=== PATIENT | male | born 1930 | race African-American/Black ===

== ENCOUNTER 2017-07-31 09:04 | Inpatient (IN) | payer MEDICARE, OTHER ==
[2017-07-31] VITALS (44 sets, daily range): BP systolic 52–148; BP diastolic 14–113
[~2017-07-31] VITALS: Ht 177.8 cm; Wt 82.1 kg
[2017-07-31] MEDS ORDERED: NS 250 ML IVPB ONE (09:30)
[2017-07-31 10:42] LABS: ANION GAP 32 mmol/L (5-15); BLOOD UREA NITROGEN 102 mg/dL (7-18); CALCIUM 8.9 MG/DL (8.5-10.1); CARBON DIOXIDE 12 MMOL/L (21-32); CHLORIDE 97 MMOL/L (98-107); CREATININE 8.8 MG/DL (0.55-1.30); POTASSIUM 4.2 MMOL/L (3.5-5.1); SODIUM 141 MMOL/L (136-145)
[2017-07-31] MEDS ORDERED: Sodium Chloride 500ML 500 ML IV ONE (10:45)
[2017-07-31 10:47] LABS: APPEARANCE,URINE VERY CLOUDY; BILIRUBIN, URINE NEGATIVE (NEGATIVE); GLUCOSE, URINE (UA) NEGATIVE (NEGATIVE); KETONES,URINE 1+ (NEGATIVE); LEUKOCYTE ESTERASE ,URINE 3+ (NEGATIVE); NITRITE,URINE POSITIVE (NEGATIVE); PH,URINE 6 (4.5-8.0); PROTEIN,URINE 3+ (NEGATIVE); UROBILINOGEN,URINE NORMAL MG/DL (0.0-1.0)
[2017-07-31 10:50] LABS: COLOR,URINE YELLOW; HEMATOCRIT 14.7 % (42.0-52.0); MEAN CORPUSCULAR VOLUME 109 FL (80-99); PLATELET COUNT 228 K/UL (150-450); RED BLOOD COUNT 1.35 M/UL (4.70-6.10); RED CELL DISTRIBUTION WIDTH 20.8 % (11.6-14.8); WHITE BLOOD COUNT 18.9 K/UL (4.8-10.8)
[2017-07-31 10:55] LABS: ALANINE AMINOTRANSFERASE 38 U/L (12-78); ALBUMIN 2.5 G/DL (3.4-5.0); ALBUMIN/GLOBULIN RATIO 0.8 (1.0-2.7); ALKALINE PHOSPHATASE 91 U/L (46-116); ASPARTATE AMINO TRANSFERASE 35 U/L (15-37); BILIRUBIN,TOTAL 0.3 MG/DL (0.2-1.0); CKMB 0.7 NG/ML (0.0-3.6); CREATINE KINASE 35 U/L (26-308)
[2017-07-31 10:59] LABS: HEMOGLOBIN 4.5 G/DL (14.2-18.0)
[2017-07-31] MEDS ORDERED: cefTRIAXone 1 GM in NS 55 ML IVPB ONE (11:15)
[2017-07-31 11:30] LABS: HEMATOCRIT 14.1 % (42.0-52.0); MEAN CORPUSCULAR VOLUME 109 FL (80-99); PLATELET COUNT 219 K/UL (150-450); RED BLOOD COUNT 1.29 M/UL (4.70-6.10); WHITE BLOOD COUNT 19.3 K/UL (4.8-10.8)
[2017-07-31 11:32] LABS: HEMOGLOBIN 4.2 G/DL (14.2-18.0)
[2017-07-31 11:41] LABS: INR 1.2 (0.9-1.1)
--- NOTE | 2017-07-31 11:48 | Diagnostic Imaging Report ---
Indication: Altered mental status Technique: XRAY Chest 1v Comparison: None Findings: Dialysis catheter in place. Vascular stents noted in the region of the left axilla. Heart is borderline enlarged. There is no definite focal airspace consolidation, no pleural effusion or pneumothorax. Surgical clips project over the epigastric region. No acute osseous abnormality seen. Impression: No radiographic evidence of acute cardiopulmonary disease. Borderline cardiomegaly. Dialysis catheter in place.
[2017-07-31] MEDS ORDERED: LORazepam Inj 2mg/ml 1ml IV ONE (15:00)
--- NOTE | 2017-07-31 15:33 | Emergency Room Report ---
History of Present Illness General Chief Complaint: Altered Level of Consciousness Source: Patient, Medical Record Present Illness HPI 87-year-old male presents ED for evaluation. Patient brought by EMS from detention. Patient found to be more confused than usual today. Hypotensive in the field. Patient has history of end-stage renal disease and gets dialysis Monday. Patient did not go to dialysis today. No fevers or chills. No chest pain shortness of breath. No other aggravating or leaving factors. 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 Review of Systems All Other Systems: limited Physical Exam Vital Signs Date Time Temp Pulse Resp B/P (MAP) Pulse Ox O2 Delivery O2 Flow Rate FiO2 07/31/17 08:58 98.8 68 22 99/32 100 Non-Rebreather 15.0 Sp02 EP Interpretation: reviewed, normal General Appearance: other - confused Head: normocephalic Eyes: bilateral eye normal inspection, bilateral eye PERRL ENT: hearing grossly normal, normal pharynx, no angioedema, normal voice Neck: full range of motion, supple/symm/no masses Respiratory: chest non-tender, lungs clear, normal breath sounds, speaking full sentences Cardiovascular #1: regular rate, rhythm, no edema Gastrointestinal: normal bowel sounds, non tender, soft, non-distended, no guarding, no rebound Rectal: deferred Genitourinary: no CVA tenderness Musculoskeletal: normal inspection Neurologic: other - confused Psychiatric: other - confused Skin: normal inspection Lymphatic: normal inspection Procedures Critical Care Time Critical Care Time i. I feel this is a highly complex case requiring extensive working including EKG/Rhythm strip, Xray/CT/US, Blood/urine lab work, repeat exams while in ED, and administration of strong opiates/narcotics for pain control, admission to hospital or close patient follow up. Total time: 30 min bedside evaluation and treatment excludes procedures (EKG). Reason for critical care: Hypotensive, anemia, septic shock Possible complications: hypotension, hypertension, CA, shock, arrhythmias, metabolic acidosis, end organ damage, respiratory failure. Interventions: Labs, IV fluids, EKG, chest x-ray. Blood transfusion. Pressors. Central line. abx Course: 87-year-old male presents hypotensive from detention. Blood pressure minimally improved with IV fluids. Hb 4.5. Lactic acid greater than 15. UA grossly positive. Right femoral central line placed. Blood transfusion. Discussed with family. Patient initially DO NOT RESUSCITATE/ comfort care but family wants to treat patient. new POLST signed Consultations: nursing staff, EMS, family Performed by: Dr Ko Tolerated well condition = critical j. because of unstable vital signs this patient had a condition that could potentially threaten life or limb. I feel this is a critical patient who required my full attention while patient was considered critical. Total Critical Care Time excluding procedures was greater than 35 minutes Central Line Central Line : Consent: Verbal Central Line Lumen: triple Maximal Sterile Barrier Tech: yes cap, yes mask, yes sterile gown, yes sterile gloves, yes large sterile sheet, yes hand hygiene, yes chlorhexidine prep Central Line Postion: femoral (R) Anesthesia: Lidocaine Complications: none Central Line Post Position: sutured, good blood return Attempts: One Patient Tolerated: Well Complications: None Medical Decision Making Diagnostic Impression: Primary Impression: Septic shock Additional Impressions: UTI (urinary tract infection) Qualified Codes: N39.0 - Urinary tract infection, site not specified ESRD (end stage renal disease) on dialysis Anemia Qualified Codes: D64.9 - Anemia, unspecified Hypotension Qualified Codes: I95.9 - Hypotension, unspecified Altered level of consciousness ER Course Hospital Course 87-year-old male presenting to ED with generalized weakness, hypotension. Differential diagnoses include: Pneumonia, UTI, sepsis, dehydration, CA/ unstable angina Clinical course Patient placed on stretcher. On phototypesetting equipment monitor with stable vitals are ED course. After initial history and physical, I ordered labs, IV fluids, EKG, chest x-ray, blood cultures, UA. Patient is difficult IV access. I placed a peripheral EJ line Labs - BUN/Cr elevated, marked leukocytosis, troponins negative, lactic acid > 15, UA grossly positive for UTI EKG - NSR, no acute ischemic changes interpreted bye me CXR - cardiomegaly, dialysis catheter in place Abx given. despite IV fluid boluses patient remains hypotensive. Patient advanced directive says patient is DO NOT RESUSCITATE, comfort care measures. spoke to over the phone and the patient's sons who states they want more aggressive measures for the patient Family agrees to central line. Blood transfusion. abx given. pressors ordered but currently withheld new POLST signed by gisella Case discussed with Dr Stallings and they agreed to admit patient to their service for further care and support I feel this is a highly complex case requiring extensive working including EKG/ Rhythm strip, Xray/CT/US, Blood/urine lab work, repeat exams while in ED, and administration of strong opiates/narcotics for pain control, admission to hospital or close patient follow up. Diagnosis - septic shock, UTI, ESRD on dialysis, anemia, hypotension, ALOC Patient admitted to ICU in critical condition Labs Test 07/31/17 10:06 07/31/17 10:10 07/31/17 11:15 Troponin I 0.036 ng/mL (0.000-0.056) White Blood Count 18.9 K/UL (4.8-10.8) 19.3 K/UL (4.8-10.8) Red Blood Count 1.35 M/UL (4.70-6.10) 1.29 M/UL (4.70-6.10) Hemoglobin 4.5 G/DL (14.2-18.0) 4.2 G/DL (14.2-18.0) Hematocrit 14.7 % (42.0-52.0) 14.1 % (42.0-52.0) Mean Corpuscular Volume 109 FL (80-99) 109 FL (80-99) Mean Corpuscular Hemoglobin 33.7 PG (27.0-31.0) 32.4 PG (27.0-31.0) Mean Corpuscular Hemoglobin Concent 30.8 G/DL (32.0-36.0) 29.6 G/DL (32.0-36.0) Red Cell Distribution Width 20.8 % (11.6-14.8) 22.0 % (11.6-14.8) Platelet Count 228 K/UL (150-450) 219 K/UL (150-450) Mean Platelet Volume 6.3 FL (6.5-10.1) 6.0 FL (6.5-10.1) Neutrophils (%) (Auto) % (45.0-75.0) % (45.0-75.0) Lymphocytes (%) (Auto) % (20.0-45.0) % (20.0-45.0) Monocytes (%) (Auto) % (1.0-10.0) % (1.0-10.0) Eosinophils (%) (Auto) % (0.0-3.0) % (0.0-3.0) Basophils (%) (Auto) % (0.0-2.0) % (0.0-2.0) Differential Total Cells Counted 100 100 Neutrophils % (Manual) 92 % (45-75) 84 % (45-75) Lymphocytes % (Manual) 3 % (20-45) 6 % (20-45) Monocytes % (Manual) 5 % (1-10) 10 % (1-10) Eosinophils % (Manual) 0 % (0-3) 0 % (0-3) Basophils % (Manual) 0 % (0-2) 0 % (0-2) Band Neutrophils 0 % (0-8) 0 % (0-8) Platelet Estimate Adequate Adequate Platelet Morphology Normal Normal Hypochromasia 4+ 4+ Anisocytosis 2+ 3+ Macrocytosis 1+ 1+ Urine Color Yellow Urine Appearance Very cloudy Urine pH 6 (4.5-8.0) Urine Specific Mccaskill 1.020 (1.005-1.035) Urine Protein 3+ (NEGATIVE) Urine Glucose (UA) Negative (NEGATIVE) Urine Ketones 1+ (NEGATIVE) Urine Occult Blood 4+ (NEGATIVE) Urine Nitrite Positive (NEGATIVE) Urine Bilirubin Negative (NEGATIVE) Urine Urobilinogen Normal MG/DL (0.0-1.0) Urine Leukocyte Esterase 3+ (NEGATIVE) Urine RBC Tntc /HPF (0 - 0) Urine WBC 10-15 /HPF (0 - 0) Urine Squamous Epithelial Cells Occasional /LPF Urine Bacteria Few /HPF (NONE) Sodium Level 141 MMOL/L (136-145) Potassium Level 4.2 MMOL/L (3.5-5.1) Chloride Level 97 MMOL/L (98-107) Carbon Dioxide Level 12 MMOL/L (21-32) Anion Gap 32 mmol/L (5-15) Blood Urea Nitrogen 102 mg/dL (7-18) Creatinine 8.8 MG/DL (0.55-1.30) Estimat Glomerular Filtration Rate mL/min (>60) Glucose Level 274 MG/DL (74-106) Lactic Acid Level 15.90 mmol/L (0.66-2.22) Calcium Level 8.9 MG/DL (8.5-10.1) Total Bilirubin 0.3 MG/DL (0.2-1.0) Aspartate Amino Transf (AST/SGOT) 35 U/L (15-37) Alanine Aminotransferase (ALT/SGPT) 38 U/L (12-78) Alkaline Phosphatase 91 U/L (46-116) Total Creatine Kinase 35 U/L (26-308) Creatine Kinase MB 0.7 NG/ML (0.0-3.6) Creatine Kinase MB Relative Index 2.0 Total Protein 5.5 G/DL (6.4-8.2) Albumin 2.5 G/DL (3.4-5.0) Globulin 3.0 g/dL Albumin/Globulin Ratio 0.8 (1.0-2.7) Polychromasia 1+ Prothrombin Time 12.5 SEC (9.30-11.50) Prothromb Time International Ratio 1.2 (0.9-1.1) Activated Partial Thromboplast Time 21 SEC (23-33) EKG Diagnostic Results Rate: normal Rhythm: NSR ST Segments: no acute changes ASA given to the pt in ED: No Rhythm Strip Diag. Results EP Interpretation: yes Rhythm: NSR, no PVC's, no ectopy Chest X-Ray Diagnostic Results Chest X-Ray Diagnostic Results : Chest X-Ray Ordered: Yes # of Views/Limited/Complete: 1 View Indication: Other - ams EP Interpretation: Yes Interpretation: no pneumothorax, other - cardiomegaly. dialysis catheter Impression: Other - cardiomegaly Electronically Signed by: Electronically signed by Clinton Ko MD Last Vital Signs Date Time Temp Pulse Resp B/P (MAP) Pulse Ox O2 Delivery O2 Flow Rate FiO2 07/31/17 11:00 96.0 79 21 74/39 100 Room Air 07/31/17 09:25 15.0 Status: improved Disposition: ADMITTED INPATIENT Condition: Critical Referrals: EBONY STALLINGS (PCP) CLINTON KO M.D. Jul 31, 2017 15:33
[2017-07-31] MEDS ORDERED: LORazepam Inj 2mg/ml 1ml IV PRN (17:45)
[2017-07-31] MEDS ORDERED: Piperacillin/Tazobactam 2.25 GM in D5W 55 ML IVPB SCH (18:30)
[2017-07-31] MEDS ORDERED: Piperacillin/Tazobactam 2.25 GM in NS 55 ML IVPB SCH (18:30)
--- NOTE | 2017-07-31 18:30 | History and Physical Report ---
DATE OF ADMISSION: 07/31/2017 CHIEF COMPLAINT: Shock, anemia. HISTORY OF PRESENT ILLNESS: The patient is an 87-year-old male. He has a prior history of stroke, hypertension, end-stage renal disease, diabetes, and ischemic cardiomyopathy. He was transferred from a halfway facility after he was found confused and poorly responsive. On evaluation in the emergency room, the patient was hypotensive. He had hemoglobin of 4 and a white count of 20,000. He had evidence of urinary tract infection. His x-ray is clear. Lactic acid level is 20. He is currently being transfused and is now being admitted to intensive care unit. The patient is currently very confused and he is not able to provide any history. PAST MEDICAL HISTORY: As above. PAST SURGICAL HISTORY: None. MEDICATIONS: Current medications reconciled and reviewed. ALLERGIES: None. SOCIAL HISTORY: There is no known history of tobacco, ethanol, or drugs. FAMILY HISTORY: None. REVIEW OF SYSTEMS: From the patient is unobtainable. PHYSICAL EXAMINATION: VITAL SIGNS: Temperature 98 degrees, blood pressure 70/50, pulse 64, and respirations 23. GENERAL: The patient is a well-developed male, in moderate amount of distress. He is anxious and confused. NECK: Supple. HEART: Regular rate and rhythm. LUNGS: Clear and . ABDOMEN: Soft, nontender and nondistended. EXTREMITIES: Without clubbing or cyanosis. The patient has a dialysis catheter in the chest wall. LABORATORY AND DIAGNOSTIC DATA: Sodium 141, potassium 4.2, chloride 97, bicarbonate 12, BUN was 102 and creatinine of 8.8. White count was 20,000, hemoglobin 4.5, hematocrit 14.7 and platelet count of 228. UA showed 10 to 15 WBCs. INR is 1.2. Lactic acid was 15.9. Chest x-ray is clear. ASSESSMENT: This is an unfortunate male with multiple medical problems, admitted with shock, sepsis and anemia. 1. Shock. 2. Sepsis. 3. Anemia, rule out gastrointestinal bleed. 4. Diabetes. 5. History of stroke. 6. History of ischemic cardiomyopathy. PLAN: IV fluids, transfuse, IV proton pump inhibitor for presumed gastrointestinal bleed. Epogen will also be added. The patient will be pancultured. Broad-spectrum IV antibiotic therapy. Renal, Cardiology, and Infectious Diseases consultations will be obtained. The patient is currently critical and guarded. Plan of care was discussed at the bedside with the patient's granddaughter. She has reconfirmed that the patient is a Full Code. Mamadou Paul M.D. DR: YRIS JOB#: [id number] CC:
[2017-07-31] MEDS ORDERED: Vancomycin 1.5 GM/D5W 250ML IVPB ONE (19:30)
--- NOTE | 2017-07-31 19:55 | Consultation ---
Consult Note Assessment/Plan #[id number] AVERY FAIRCHILD Jul 31, 2017 19:55
[2017-07-31] MEDS: Pantoprazole Inj IVP SCH (20:59)
[2017-07-31] MEDS ORDERED: Epogen (for ESRD on dialysis) SUBQ SCH (21:00)
[2017-07-31] MEDS: NovoLOG Insulin Flexpen SUBQ SCH (21:12)
[2017-07-31] MEDS: Piperacillin/Tazobactam 2.25 GM in NS 55 ML IVPB SCH (22:00)
[2017-07-31] MEDS ORDERED: Lidocaine 1% Plain 30 ml INJ ONE (22:29)
[2017-07-31] MEDS ORDERED: Sodium Bicarbonate 50ml Carp ONE (23:21)
[2017-07-31 23:36] LABS: HEMATOCRIT 19.9 % (42.0-52.0); MEAN CORPUSCULAR VOLUME 93 FL (80-99); PLATELET COUNT 197 K/UL (150-450); RED BLOOD COUNT 2.13 M/UL (4.70-6.10); RED CELL DISTRIBUTION WIDTH 20.7 % (11.6-14.8)
[2017-07-31 23:42] LABS: WHITE BLOOD COUNT 28.1 K/UL (4.8-10.8)
[2017-07-31 23:43] LABS: HEMOGLOBIN 6.6 G/DL (14.2-18.0)
[2017-07-31 23:46] LABS: % IRON SATURATION 138 % (15-50); IRON 153 ug/dL (50-175); TOTAL IRON BINDING CAPACITY 111 ug/dL (250-450)
[2017-08-01] VITALS (34 sets, daily range): BP systolic 61–167; BP diastolic 12–107
[2017-08-01] MEDS: Sodium Bicarbonate 50 ML in NS 1000ml 1,000 ML IV SCH ×2 (00:21→09:17)
--- NOTE | 2017-08-01 00:21 | Emergency Room Report ---
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 Physical Exam Vital Signs Date Time Temp Pulse Resp B/P (MAP) Pulse Ox O2 Delivery O2 Flow Rate FiO2 07/31/17 08:58 98.8 68 22 99/32 100 Non-Rebreather 15.0 07/31/17 20:00 28 Procedures Central Line Central Line : Consent: Emergent Central Line Lumen: triple Maximal Sterile Barrier Tech: yes cap, yes mask, yes sterile gown, yes sterile gloves, yes large sterile sheet, yes hand hygiene, yes chlorhexidine prep Central Line Postion: internal jugular (L) Anesthesia: Lidocaine - 5 ml cc's of anesthesia: 5 Complications: none Central Line Post Position: sutured, good blood return, position confirmed w / CXR Attempts: Other - two attempt left femoral line without success Patient Tolerated: Well Complications: None Medical Decision Making Diagnostic Impression: Primary Impression: Septic shock Additional Impressions: Anemia Altered level of consciousness UTI (urinary tract infection) ESRD (end stage renal disease) on dialysis Hypotension Last Vital Signs Date Time Temp Pulse Resp B/P (MAP) Pulse Ox O2 Delivery O2 Flow Rate FiO2 07/31/17 23:15 72 32 85/24 100 Nasal Cannula 2.0 07/31/17 20:00 28 07/31/17 20:00 96.0 Disposition: ADMITTED INPATIENT Condition: Critical Referrals: EBONY STALLINGS (PCP) Semaj Sagastume Aug 01, 2017 00:21
[2017-08-01 01:13] LABS: FERRITIN 6515 NG/ML (8-388)
[2017-08-01 05:22] LABS: ALANINE AMINOTRANSFERASE 907 U/L (12-78); ALBUMIN 2.4 G/DL (3.4-5.0); ALKALINE PHOSPHATASE 98 U/L (46-116); ANION GAP 30 mmol/L (5-15); ASPARTATE AMINO TRANSFERASE 1507 U/L (15-37); BILIRUBIN,TOTAL 0.4 MG/DL (0.2-1.0); BLOOD UREA NITROGEN 113 mg/dL (7-18); CARBON DIOXIDE 13 MMOL/L (21-32); CHLORIDE 102 MMOL/L (98-107); CREATININE 8.7 MG/DL (0.55-1.30); POTASSIUM 4.5 MMOL/L (3.5-5.1); SODIUM 145 MMOL/L (136-145)
[2017-08-01] MEDS: NovoLOG Insulin Flexpen SUBQ SCH ×3 (06:22→16:30)
[2017-08-01] MEDS: Piperacillin/Tazobactam 2.25 GM in NS 55 ML IVPB SCH (06:29)
--- NOTE | 2017-08-01 08:30 | Consultation ---
DATE OF CONSULTATION: 07/31/2017 NEPHROLOGY CONSULTATION CONSULTING PHYSICIAN: Maury Aguiar M.D. ATTENDING/REFERRING PHYSICIAN: Mamadou Paul M.D. REASON FOR CONSULTATION: The patient has end-stage renal disease, has presented with shock. HISTORY OF PRESENT ILLNESS: This is an unfortunate 87-year-old male, resident of a senior living, who was found to be poorly responsive and has been brought to the emergency room of [facility]. He was found to have white count of 20,000 and hemoglobin of 4 as well as lactic acid of 20, for which he has been admitted today to the intensive care unit and has been started on blood transfusion with also IV antibiotics. Unfortunately, blood culture was not drawn in the emergency room before the antibiotic was given. I have been asked to see him for the end-stage renal disease and underlying shock. He was also found to have blood pressure in the range of 50s systolic, has been started on Levophed drip, and his systolic blood pressure is in the range of 90s now. PAST MEDICAL HISTORY: Apparently significant for ischemic cardiomyopathy, previous strokes, hypertension, end-stage renal disease, type 2 diabetes mellitus. PAST SURGICAL HISTORY: None. SOCIAL HISTORY: He is a resident of a senior living. I am not aware of any smoking or drinking at this point. MEDICATIONS: Reconciled in the computer. Right now, he is on Levophed, ceftriaxone, normal saline bolus, Zosyn, vancomycin, Epogen, sliding-scale insulin, lorazepam, pantoprazole. REVIEW OF SYSTEMS: Impossible since he is very confused and is unable to give me much history. PHYSICAL EXAMINATION: GENERAL: He is eutrophic elderly, does not seem to be in much acute distress, lying down in the bed of the intensive care unit. VITAL SIGNS: Blood pressure 96/41, pulse of 58, respirations 23, temperature 98.3. HEENT: Head is atraumatic. Eyes, pupils reactive to light. No evidence of papilledema. Ears, canals are clear, tympanic membrane intact. NECK: Supple. Jugular venous distention is low. HEART: Regular rhythm. Bradycardic. LUNGS: Decreased air excursion bilaterally. ABDOMEN: Supple. He has left-sided abdominal pain. EXTREMITIES: Lower extremity shows no cyanosis or clubbing. No pedal edema. NEUROLOGICAL: He is very confused but he is alert. LABORATORY DATA: Sodium 141, potassium 4.2, chloride 97, 88.8, glucose 274. Lactic acid 20.7. Albumin is 2.5. WBC 19.3, hemoglobin 12.2, hematocrit platelets of 219,000. IMPRESSION: 1. He has evidence of septic shock. The source might be in dialysis catheter. 2. Ischemic colitis in presence of some abdominal pain. 3. Hypovolemic by clinical ground. 4. Azotemia. 5. Severe anemia, possibly due to gastrointestinal bleed. PLAN: We will continue with pressors. Transfusion of the blood is in order. He probably needs to be dialyzed. He needs to have blood cultures, however, continue with IV antibiotics and we will go from there. Maury Aguiar M.D. DR: Enrrique JOB#: [id number] CC:
--- NOTE | 2017-08-01 08:30 | Consultation ---
DATE OF CONSULTATION: 07/31/2017 GASTROENTEROLOGY CONSULTATION CONSULTING PHYSICIAN: Amairani Tobias M.D. ATTENDING/REFERRING PHYSICIAN: Mamadou Paul M.D. CHIEF COMPLAINT: I was asked to see this patient by Dr. Mamadou Paul for evaluation of anemia and abdominal issues. HISTORY OF PRESENT ILLNESS: The patient is an unfortunate 87-year-old man, who is confused and unable to provide any history. He comes from a [facility] and has multiple medical problems which are outlined below. He was found more confused and poorly responsive and was brought to the hospital where he was found to be in state of shock with sepsis, hypotension, and severe anemia. The patient himself was unable to provide additional history and therefore, most of the information is available from the chart. The patient is in intensive care unit and has required close treatment and observation. His lactic acid is elevated. He has elevated white count and he is getting blood transfusion. PAST MEDICAL HISTORY: History of stroke, hypertension, end-stage renal disease, diabetes, ischemic cardiomyopathy, dementia, and anemia. SOCIAL HISTORY: The patient has no chart history of smoking or drinking. FAMILY HISTORY: Noncontributory. REVIEW OF SYSTEMS: Otherwise not obtainable. MEDICATIONS: See the chart list for details. ALLERGIES: None. PHYSICAL EXAMINATION: GENERAL: A debilitated, elderly man seen in the intensive care unit. HEENT: Normocephalic, atraumatic. Sclerae anicteric. Oropharynx clear. Dentition is poor. NECK: Supple. CHEST: Clear to auscultation. CARDIOVASCULAR: Revealed regular rate. ABDOMEN: Soft, but tender to palpation diffusely and the abdomen was also mildly distended. Tenderness appeared to be more so in the lower quadrants with some voluntary guarding, but no rebound. EXTREMITIES: Revealed no edema. LABORATORY DATA: Noted. ASSESSMENT: This patient presents with shock, sepsis, and hypotension. He was resuscitated with fluids and blood transfusion. He appears to be somewhat more stable, however, he is still receiving pressors for blood pressure support. I am concerned about the degree of abdominal tenderness on exam. He had in fact developed ischemic bowel as a primary or secondary process. The patient should be sent to CT scanner and CT scan of the abdomen and pelvis should be done. No intravenous contrast will be given, given the patient renal failure. The patient's prognosis is guarded and if severe ischemic bowel was found, then surgical candidacy would obviously be poor. RECOMMENDATIONS: Per above discussion and per orders written in the chart. IV fluid and blood resuscitation, serial CBCs, STAT CT scan, and close followup. Thank you for asking me to participate in the care of this patient. Amairani Tobias M.D. DR: CODY JOB#: [id number] CC: PREMA
--- NOTE | 2017-08-01 09:14 | General Progress Note ---
Assessment/Plan Problem List: (1) AMI (acute myocardial infarction) ICD Codes: I21.9 - Acute myocardial infarction, unspecified SNOMED: 61439422 (2) Septic shock ICD Codes: A41.9 - Sepsis, unspecified organism; R65.21 - Severe sepsis with septic shock SNOMED: 19464444 (3) Anemia ICD Codes: D64.9 - Anemia, unspecified SNOMED: 565320025 Qualifiers: Qualified Codes: D64.9 - Anemia, unspecified (4) Hypotension ICD Codes: I95.9 - Hypotension, unspecified SNOMED: 11910981 Qualifiers: Qualified Codes: I95.9 - Hypotension, unspecified (5) Altered level of consciousness ICD Codes: R40.4 - Transient alteration of awareness SNOMED: 4262838 (6) ESRD (end stage renal disease) on dialysis ICD Codes: N18.6 - End stage renal disease; Z99.2 - Dependence on renal dialysis SNOMED: 640709426 (7) Altered mental status ICD Codes: R41.82 - Altered mental status, unspecified SNOMED: 514257032 Status: deteriorating Assessment/Plan cont pressors wean as able follow up cultures monitor trop echo HD if able ct abd transfuse to hgb >8.5 npo for now full code per . will ask licensed master social worker to look at polst Subjective ROS Limited/Unobtainable: Yes Constitutional: Reports: malaise, weakness HEENT: Reports: no symptoms Cardiovascular: Reports: no symptoms Respiratory: Reports: shortness of breath Gastrointestinal/Abdominal: Reports: difficulty swallowing Genitourinary: Reports: no symptoms Neurologic/Psychiatric: Reports: pre-existing deficit Endocrine: Reports: no symptoms Hematologic/Lymphatic: Reports: anemia Allergies: Coded Allergies: No Known Allergies (Unverified , 07/31/17) All Systems: reviewed and negative except above Subjective doing poorly. hypotensive on levophed. s/p 4 units prbcs. no obvious bleeding noted. confused. Objective Last 24 Hour Vital Signs Date Time Temp Pulse Resp B/P (MAP) Pulse Ox O2 Delivery O2 Flow Rate FiO2 08/01/17 07:00 97.2 116 23 84/43 100 Nasal Cannula 2.0 08/01/17 06:00 100 26 106/54 100 Nasal Cannula 2.0 08/01/17 05:45 105 24 114/54 100 Nasal Cannula 2.0 08/01/17 05:30 111 24 97/40 100 Nasal Cannula 2.0 08/01/17 05:15 117 24 105/55 100 Nasal Cannula 2.0 08/01/17 05:00 97.2 117 24 101/54 100 Nasal Cannula 2.0 08/01/17 04:45 116 25 111/52 100 Nasal Cannula 2.0 08/01/17 04:30 117 25 120/51 100 Nasal Cannula 2.0 08/01/17 04:15 97.8 116 26 77/53 100 Nasal Cannula 2.0 08/01/17 04:00 117 29 115/94 100 Nasal Cannula 2.0 08/01/17 04:00 117 08/01/17 03:45 114 26 78/45 100 Nasal Cannula 2.0 08/01/17 03:30 116 27 121/97 100 Nasal Cannula 2.0 08/01/17 03:15 114 29 107/83 100 Nasal Cannula 2.0 08/01/17 03:00 115 26 104/86 100 Nasal Cannula 2.0 08/01/17 02:45 112 28 61/51 100 Nasal Cannula 2.0 08/01/17 02:30 102 27 81/59 100 Nasal Cannula 2.0 08/01/17 02:00 100 25 82/51 100 Nasal Cannula 2.0 08/01/17 01:57 106/74 08/01/17 01:45 106 26 85/40 100 Nasal Cannula 2.0 08/01/17 01:30 105 24 92/42 100 Nasal Cannula 2.0 08/01/17 01:15 103 21 88/38 100 Nasal Cannula 2.0 08/01/17 01:00 103 21 90/74 100 Nasal Cannula 2.0 08/01/17 00:45 100 21 107/94 100 Nasal Cannula 2.0 08/01/17 00:30 93 21 100/35 100 Nasal Cannula 2.0 08/01/17 00:00 75 08/01/17 00:00 97.8 78 22 78/12 100 Nasal Cannula 2.0 07/31/17 23:30 71 21 73/14 100 Nasal Cannula 2.0 07/31/17 23:15 72 32 85/24 100 Nasal Cannula 2.0 07/31/17 23:00 85/51 1/22/18 23:00 70/22 07/31/17 23:00 73 30 61/48 100 Nasal Cannula 2.0 07/31/17 22:45 75 32 54/15 100 Nasal Cannula 2.0 07/31/17 22:30 81 28 63/30 100 Nasal Cannula 2.0 07/31/17 22:15 80 31 69/39 100 Nasal Cannula 2.0 07/31/17 22:00 66/53 07/31/17 22:00 98/45 07/31/17 22:00 80 31 66/53 100 Nasal Cannula 2.0 07/31/17 21:45 84 25 54/24 100 Nasal Cannula 2.0 07/31/17 21:15 73 22 94/20 100 Nasal Cannula 2.0 07/31/17 21:00 74/39 07/31/17 21:00 82/60 07/31/17 21:00 72 26 74/39 100 Nasal Cannula 2.0 07/31/17 20:45 69 21 87/45 100 Nasal Cannula 2.0 07/31/17 20:15 67 24 82/64 100 Nasal Cannula 2.0 07/31/17 20:00 64 07/31/17 20:00 98 Nasal Cannula 2.0 28 07/31/17 20:00 96.0 64 25 82/24 100 Nasal Cannula 2.0 07/31/17 20:00 Nasal Cannula 2.0 28 07/31/17 19:45 65 26 91/35 100 Nasal Cannula 2.0 07/31/17 19:15 63 22 100/56 100 Nasal Cannula 2.0 07/31/17 19:00 96/41 07/31/17 18:30 53/32 07/31/17 18:20 53/32 07/31/17 18:00 90.3 58 23 85/72 100 Room Air 07/31/17 16:38 64 23 78/50 100 Room Air 07/31/17 16:32 63 20 96/78 100 Room Air 07/31/17 15:45 64 23 96/78 100 Room Air 07/31/17 15:00 68 23 99/62 100 Room Air 07/31/17 14:30 64 23 78/50 100 Room Air 07/31/17 14:00 67 21 72/57 100 Room Air 07/31/17 13:30 69 23 97/59 100 Room Air 07/31/17 13:00 96.8 65 19 72/47 100 Room Air 07/31/17 12:45 96.8 70 18 89/53 100 Room Air 07/31/17 12:40 97.0 64 18 70/36 100 Room Air 07/31/17 12:35 97.0 66 18 68/14 100 Room Air 07/31/17 12:00 67 20 70/36 100 Room Air 07/31/17 11:30 73 20 76/45 100 Room Air 07/31/17 11:00 96.0 79 21 74/39 100 Room Air 07/31/17 10:40 68 18 70/50 100 Room Air 07/31/17 10:35 68 18 76/17 100 Room Air 07/31/17 10:30 68 18 87/57 100 Room Air 07/31/17 10:25 64 22 92/22 100 Room Air 07/31/17 10:20 67 19 90/16 100 Room Air 07/31/17 10:15 67 20 64/34 100 Room Air 07/31/17 10:10 67 21 95/37 100 Room Air 07/31/17 10:00 67 20 64/34 100 Room Air 07/31/17 09:50 67 21 95/37 100 Room Air 07/31/17 09:40 69 21 56/21 100 Room Air 07/31/17 09:30 98.7 74 22 69/41 100 Room Air 07/31/17 09:25 98.7 68 21 52/27 100 Non-Rebreather 15.0 07/31/17 09:20 98.7 67 20 65/28 100 Non-Rebreather 15.0 07/31/17 09:15 98.7 67 20 70/21 100 Non-Rebreather 15.0 Intake and Output 07/31/17 08/01/17 19:00 07:00 Intake Total 875 ml 1255.50 ml Output Total 0 ml 0 ml Balance 875 ml 1255.50 ml Intake Oral 0 ml 0 ml IV Total 750 ml 1255.50 ml Blood Product 125 ml Output Urine Total 0 ml 0 ml Other 0 ml Laboratory Tests 07/31/17 10:06: Troponin I 0.036 07/31/17 10:10: White Blood Count 18.9H, Red Blood Count 1.35L, Hemoglobin 4.5*L, Hematocrit 14.7L, Mean Corpuscular Volume 109H, Mean Corpuscular Hemoglobin 33.7H, Mean Corpuscular Hemoglobin Concent 30.8L, Red Cell Distribution Width 20.8H, Platelet Count 228, Mean Platelet Volume 6.3L, Neutrophils (%) (Auto) , Lymphocytes (%) (Auto) , Monocytes (%) (Auto) , Eosinophils (%) (Auto) , Basophils (%) (Auto) , Differential Total Cells Counted 100, Neutrophils % ( Manual) 92H, Lymphocytes % (Manual) 3L, Monocytes % (Manual) 5, Eosinophils % ( Manual) 0, Basophils % (Manual) 0, Band Neutrophils 0, Platelet Estimate Adequate, Platelet Morphology Normal, Hypochromasia 4+, Anisocytosis 2+, Macrocytosis 1+, Urine Color Yellow, Urine Appearance Very cloudy, Urine pH 6, Urine Specific [place] 1.020, Urine Protein 3+H, Urine Glucose (UA) Negative, Urine Ketones 1+H, Urine Occult Blood 4+H, Urine Nitrite PositiveH, Urine Bilirubin Negative, Urine Urobilinogen Normal, Urine Leukocyte Esterase 3+H, Urine RBC TntcH, Urine WBC 10-15H, Urine Squamous Epithelial Cells Occasional, Urine Bacteria Few, Sodium Level 141, Potassium Level 4.2, Chloride Level 97L, Carbon Dioxide Level 12L, Anion Gap 32H, Blood Urea Nitrogen 102H, Creatinine 8.8H, Estimat Glomerular Filtration Rate , Glucose Level 274H, Lactic Acid Level 15.90H, Calcium Level 8.9, Total Bilirubin 0.3, Aspartate Amino Transf ( AST/SGOT) 35, Alanine Aminotransferase (ALT/SGPT) 38, Alkaline Phosphatase 91, Total Creatine Kinase 35, Creatine Kinase MB 0.7, Creatine Kinase MB Relative Index 2.0, Total Protein 5.5L, Albumin 2.5L, Globulin 3.0, Albumin/Globulin Ratio 0.8L 07/31/17 11:15: White Blood Count 19.3H, Red Blood Count 1.29L, Hemoglobin 4.2*L, Hematocrit 14.1L, Mean Corpuscular Volume 109H, Mean Corpuscular Hemoglobin 32.4H, Mean Corpuscular Hemoglobin Concent 29.6L, Red Cell Distribution Width 22.0H, Platelet Count 219, Mean Platelet Volume 6.0L, Neutrophils (%) (Auto) , Lymphocytes (%) (Auto) , Monocytes (%) (Auto) , Eosinophils (%) (Auto) , Basophils (%) (Auto) , Differential Total Cells Counted 100, Neutrophils % ( Manual) 84H, Lymphocytes % (Manual) 6L, Monocytes % (Manual) 10, Eosinophils % ( Manual) 0, Basophils % (Manual) 0, Band Neutrophils 0, Platelet Estimate Adequate, Platelet Morphology Normal, Hypochromasia 4+, Anisocytosis 3+, Macrocytosis 1+, Polychromasia 1+, Prothrombin Time 12.5H, Prothromb Time International Ratio 1.2H, Activated Partial Thromboplast Time 21L 07/31/17 15:20: Lactic Acid Level 20.70H 07/31/17 18:00: Arterial Blood pH 7.100*L, Arterial Blood Partial Pressure CO2 17.4*L, Arterial Blood Partial Pressure O2 292.8H, Arterial Blood HCO3 5.3L, Arterial Blood Oxygen Saturation 98.9H, Arterial Blood Base Excess -22.3, Heriberto Test Positive 07/31/17 23:10: White Blood Count 28.1*H, Red Blood Count 2.13L, Hemoglobin 6.6#*L, Hematocrit 19.9#L, Mean Corpuscular Volume 93#, Mean Corpuscular Hemoglobin 31.2H, Mean Corpuscular Hemoglobin Concent 33.4, Red Cell Distribution Width 20.7H, Platelet Count 197, Mean Platelet Volume 5.8L, Neutrophils (%) (Auto) , Lymphocytes (%) (Auto) , Monocytes (%) (Auto) , Eosinophils (%) (Auto) , Basophils (%) (Auto) , Differential Total Cells Counted 100, Neutrophils % ( Manual) 84H, Lymphocytes % (Manual) 3L, Monocytes % (Manual) 0L, Eosinophils % ( Manual) 0, Basophils % (Manual) 0, Band Neutrophils 13H, Platelet Estimate Adequate, Platelet Morphology Normal, Poikilocytosis 3+, Anisocytosis 3+, Tear Drop Cells 1+, Ovalocytes 2+, Lactic Acid Level 17.00H, Iron Level 153, Total Iron Binding Capacity 111L, Percent Iron Saturation 138H, Unsaturated Iron Binding -42L, Ferritin 6515H 08/01/17 03:00: Lactic Acid Level 11.60H 08/01/17 04:00: Lactic Acid Level 11.30H, Sodium Level 145, Potassium Level 4.5, Chloride Level 102, Carbon Dioxide Level 13L, Anion Gap 30H, Blood Urea Nitrogen 113H, Creatinine 8.7H, Estimat Glomerular Filtration Rate , Glucose Level 108#H, Calcium Level 8.0L, Total Bilirubin 0.4, Aspartate Amino Transf (AST/SGOT) 1507H , Alanine Aminotransferase (ALT/SGPT) 907H, Alkaline Phosphatase 98, Troponin I 2.265H, Total Protein 4.8L, Albumin 2.4L, Globulin 2.4, Albumin/Globulin Ratio 1.0 08/01/17 07:30: Lactic Acid Level [Pending] Height (Feet): 5 Height (Inches): 10.00 Weight (Pounds): 181 General Appearance: WD/WN, lethargic, confused Neck: supple Cardiovascular: normal rate, regular rhythm Respiratory/Chest: chest wall non-tender, lungs clear, normal breath sounds, no respiratory distress Abdomen: normal bowel sounds, non tender, soft, no organomegaly Edema: no edema noted Arm (L), no edema noted Arm (R), no edema noted Leg (L), no edema noted Leg (R), no edema noted Pedal (L), no edema noted Pedal (R), no edema noted Generalized Neurologic: disoriented EBONY STALLINGS Aug 01, 2017 09:13
[2017-08-01] MEDS: Pantoprazole Inj IVP SCH (09:17)
[2017-08-01] MEDS ORDERED: Meropenem 1 GM in NS 55 ML IVPB ONE (12:30)
--- NOTE | 2017-08-01 12:36 | Diagnostic Imaging Report ---
Indication: Status post central line placement Technique: One view of the chest Comparison: 07/31/2017 Findings: Interim placement of left jugular central venous catheter, tip of which projects at the level of the cavoatrial junction. No gross pneumothorax. Right jugular tunneled dialysis catheter remains. Left axillary venous stent remains. Lungs and pleural spaces are clear other than minimal atelectasis in the left mid lung periphery Impression: Satisfactory position of central venous catheter. No radiographically evident complication Minimal left midlung atelectasis Other stable findings as described This agrees with the preliminary interpretation provided overnight by [facility] teleradiology service.
[2017-08-01 14:04] LABS: HEMOGLOBIN 10.4 G/DL (14.2-18.0); MEAN CORPUSCULAR VOLUME 89 FL (80-99); PLATELET COUNT 138 K/UL (150-450); RED BLOOD COUNT 3.48 M/UL (4.70-6.10); RED CELL DISTRIBUTION WIDTH 16.6 % (11.6-14.8); WHITE BLOOD COUNT 12.7 K/UL (4.8-10.8)
--- NOTE | 2017-08-01 14:10 | Diagnostic Imaging Report ---
Indication: Abdominal tenderness and pain Technique: Spiral acquisitions obtained through the abdomen and pelvis. No oral contrast utilized, per emergency room physician request No IV contrast utilized, per referring physician request.. Multiplanar reconstructions were generated. Total dose length product 1179.53 mGycm. CTDIvol(s) 19.75 mGy. Dose reduction achieved using automated exposure control Comparison: None Findings: There is equivocal mild wall thickening of the distal sigmoid colon, although this is probably an artifact of under distention. There is colonic diverticulosis. No evidence of diverticulitis. There is evidence of prior ascending colectomy and ileocolic anastomosis. No small bowel distention. No free or loculated intraperitoneal air or fluid is evident. The distal esophagus is somewhat gas filled. Surgical clips are seen in the region of the distal esophagus. The stomach demonstrates what appears to be a somewhat unusual small diverticulum. The duodenum is unremarkable. Lack of IV contrast limits assessment of the solid organs. The gallbladder is surgically absent. The liver demonstrates calcifications which are probably mostly arterial. No definite focal abnormality. The bile ducts are nondilated. The pancreas is somewhat atrophic. The spleen and adrenals are unremarkable. The kidneys are atrophic bilaterally. The right kidney demonstrates a 13 mm exophytic cyst. Both kidneys demonstrate calcifications which are probably largely arterial. Somewhat numerous but not frankly enlarged retroperitoneal lymph nodes are demonstrated. No pelvic mass or adenopathy. There is evidence of prior lumbar spine fusion surgery. The right femur demonstrates what is presumably a large synovial cyst. Degenerative changes with subchondral cyst formation are seen in the bilateral hips. Pleural or parenchymal calcifications are seen in the periphery of the right lung. There is posterior dependent pulmonary parenchymal atelectasis and possibly trace bilateral pleural fluid. Impression: Equivocal mild wall thickening of the distal sigmoid colon, probably an artifact of under distention, but the possibility of colitis should be considered. No acute process otherwise Colonic diverticulosis. No evidence of diverticulitis Surgically absent gallbladder Atrophic bilateral kidneys Posterior dependent pulmonary parenchymal atelectasis and possible trace bilateral pleural effusions Incidental findings as noted, including degenerative changes of the bilateral hips, possible unusual small gastric diverticulum, right renal cyst The CT scanner at [facility] is accredited by the [employer] and the scans are performed using protocols designed to limit radiation exposure to as low as reasonably achievable to attain images of sufficient resolution adequate for diagnostic evaluation.
--- NOTE | 2017-08-01 14:20 | Diagnostic Imaging Report ---
Indications: Multilevel of consciousness Technique: Spiral acquisitions obtained through the brain. Angled axial and coronal 5 x 5 mm slices were reconstructed. Total dose length product 1509.8 mGycm. CTDI vol(s) 70.38 mGy. Dose reduction achieved using automated exposure control Comparison: None. Findings: There is slight prominence of the bilateral frontal extra-axial CSF spaces slightly greater on the right than on the left. Particularly on the right, there is equivocally slightly higher attenuation at the periphery, raising the possibility of a small chronic subdural hematoma. More anteriorly, blood vessels are seen immediately deep to the scalp suggesting that this is just prominent CSF. This does not result in any significant mass effect. No acute intracranial hemorrhage. No mass effect or midline shift. Old lacunar infarcts are seen in the left basal ganglia region and in the right side of the betzaida. There is generalized age-related enlargement of the ventricles and extra axial CSF spaces. 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 Intact calvarium. 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 If real, no significant mass effect. If clinically indicated, MRI may be useful to clarify Negative for acute intracranial bleed Chronic and age-related changes, as described Evidence of bilateral right greater than left mastoid disease Critical value findings phoned to Dr. Paul at the time of interpretation The CT scanner at [facility] is accredited by the [employer] and the scans are performed using protocols designed to limit radiation exposure to as low as reasonably achievable to attain images of sufficient resolution adequate for diagnostic evaluation.
--- NOTE | 2017-08-01 15:15 | Consultation ---
DATE OF CONSULTATION: 08/01/2017 INFECTIOUS DISEASES CONSULTATION CONSULTING PHYSICIAN: Tha Ibarra M.D. REFERRING PHYSICIAN: Mamadou Paul M.D. REASON FOR CONSULTATION: Possible sepsis. HISTORY OF PRESENTING ILLNESS: This is an 87-year-old gentleman with history of diabetes; hypertension; CVA; end-stage renal disease, on dialysis; and ischemic cardiomyopathy, who came in from a residential facility because he was confused and poorly responsive. He was found to have a leukocytosis and a urinary tract infection, and an Infectious Diseases consultation has been obtained for antibiotics. He has been admitted to the ICU. PAST MEDICAL HISTORY: 1. History of diabetes. 2. Hypertension. 3. Renal failure, on dialysis. 4. CVA. 5. Ischemic cardiomyopathy. SOCIAL HISTORY: No history of smoking, alcohol, or drug use. FAMILY HISTORY: Unknown. REVIEW OF SYSTEMS: Unable to obtain currently. MEDICATIONS: As an inpatient, the patient is on sodium bicarbonate, Zosyn, Epogen, insulin, IV vancomycin, Levophed, Protonix, and lorazepam. ALLERGIES: No known drug allergies. PHYSICAL EXAMINATION: VITAL SIGNS: Temperature of 97.2, T-max of 97.8, pulse of 103, respiratory rate of 22, blood pressure 121/61, and O2 saturation of 100%. HEENT: Pupils are equally reactive to light and accommodation. Mouth appears clean without thrush. NECK: Supple. No adenopathy. No JVD. CARDIOVASCULAR: Regular rate and rhythm. No murmurs. LUNGS: Clear to auscultation bilaterally. No crackles. No wheezes. ABDOMEN: Soft and nontender. No organomegaly. EXTREMITIES: No cyanosis, no clubbing, no edema. Right subclavian catheter is noted. Left IJ catheter noted. LABORATORY AND DIAGNOSTIC DATA: White count of 28.1, hemoglobin 6.6, hematocrit 19.9, MCV 93, platelet count of 197,000, neutrophils of 84%. Sodium 145, potassium 4.5, chloride 102, bicarb 13, BUN 113, creatinine 8.7, glucose 108. Calcium 8. Total bilirubin 0.4. AST 1507, ALT 907, alkaline phosphatase 98. Troponin 2.265. Total protein 4.8. Albumin 2.4. UA showing 10 to 15 white cells, too numerous to count red cells. Urine culture from 07/31/2017 is pending. Nasal swab for influenza is negative for A and B. Blood cultures are pending. Chest x-ray was unremarkable. ASSESSMENT: 1. This is an 87-year-old gentleman with history of diabetes, hypertension, and renal failure, who comes in with leukocytosis, could be secondary to urinary tract infection. Would also like to rule out line sepsis as a possibility. 2. Renal failure. 3. Diabetes. 4. Cardiomyopathy. PLAN: 1. Continue IV vancomycin. 2. Discontinue Zosyn. 3. We will start the patient on meropenem. 4. We will follow up cultures and adjust antibiotics accordingly. I would like to thank Dr. Paul for this consultation. Tha Ibarra M.D. DR: SUZANNA JOB#: [id number] CC: Mamadou Paul M.D.
--- NOTE | 2017-08-01 15:46 | Nephrology Progress Note ---
Assessment/Plan Assessment 1) ESRD 2) Septic shock 3) R/O line sepsis 4) ? ischemic colitis R/o C.diff 5) Anemia better post blood transfusion Plan: Continue ATB's Awaiting HD Subjective Subjective He is still alert, the WBC is down to 12K, lactate is 3 now, CT of abdomen shows thickening of sigmoid colon, still on Levophed drip Objective Objective Last 24 Hour Vital Signs Date Time Temp Pulse Resp B/P (MAP) Pulse Ox O2 Delivery O2 Flow Rate FiO2 08/01/17 15:00 99 32 106/60 98 Nasal Cannula 2.0 08/01/17 14:00 117/62 08/01/17 14:00 96 30 103/42 98 Nasal Cannula 2.0 08/01/17 13:00 163/72 08/01/17 13:00 120 29 118/47 94 Nasal Cannula 2.0 08/01/17 12:00 106 08/01/17 12:00 125/77 08/01/17 12:00 98.0 106 26 130/68 96 Nasal Cannula 2.0 08/01/17 11:00 97 30 129/57 95 Nasal Cannula 2.0 08/01/17 11:00 129/57 08/01/17 10:00 103 22 121/64 100 Nasal Cannula 2.0 08/01/17 10:00 120/54 08/01/17 09:17 129/52 08/01/17 09:00 105 24 129/52 100 Nasal Cannula 2.0 08/01/17 08:00 118 08/01/17 08:00 104/55 08/01/17 08:00 104/55 08/01/17 07:00 124/54 08/01/17 07:00 97.2 116 23 84/43 100 Nasal Cannula 2.0 08/01/17 06:00 100 26 106/54 100 Nasal Cannula 2.0 08/01/17 05:45 105 24 114/54 100 Nasal Cannula 2.0 08/01/17 05:30 111 24 97/40 100 Nasal Cannula 2.0 08/01/17 05:15 117 24 105/55 100 Nasal Cannula 2.0 08/01/17 05:00 97.2 117 24 101/54 100 Nasal Cannula 2.0 08/01/17 04:45 116 25 111/52 100 Nasal Cannula 2.0 08/01/17 04:30 117 25 120/51 100 Nasal Cannula 2.0 08/01/17 04:15 97.8 116 26 77/53 100 Nasal Cannula 2.0 08/01/17 04:00 117 29 115/94 100 Nasal Cannula 2.0 08/01/17 04:00 117 08/01/17 03:45 114 26 78/45 100 Nasal Cannula 2.0 08/01/17 03:30 116 27 121/97 100 Nasal Cannula 2.0 08/01/17 03:15 114 29 107/83 100 Nasal Cannula 2.0 08/01/17 03:00 115 26 104/86 100 Nasal Cannula 2.0 08/01/17 02:45 112 28 61/51 100 Nasal Cannula 2.0 08/01/17 02:30 102 27 81/59 100 Nasal Cannula 2.0 08/01/17 02:00 100 25 82/51 100 Nasal Cannula 2.0 08/01/17 01:57 106/74 08/01/17 01:45 106 26 85/40 100 Nasal Cannula 2.0 08/01/17 01:30 105 24 92/42 100 Nasal Cannula 2.0 08/01/17 01:15 103 21 88/38 100 Nasal Cannula 2.0 08/01/17 01:00 103 21 90/74 100 Nasal Cannula 2.0 08/01/17 00:45 100 21 107/94 100 Nasal Cannula 2.0 08/01/17 00:30 93 21 100/35 100 Nasal Cannula 2.0 08/01/17 00:00 75 08/01/17 00:00 97.8 78 22 78/12 100 Nasal Cannula 2.0 07/31/17 23:30 71 21 73/14 100 Nasal Cannula 2.0 07/31/17 23:15 72 32 85/24 100 Nasal Cannula 2.0 07/31/17 23:00 85/51 07/31/17 23:00 70/22 07/31/17 23:00 73 30 61/48 100 Nasal Cannula 2.0 07/31/17 22:45 75 32 54/15 100 Nasal Cannula 2.0 07/31/17 22:30 81 28 63/30 100 Nasal Cannula 2.0 07/31/17 22:15 80 31 69/39 100 Nasal Cannula 2.0 07/31/17 22:00 66/53 07/31/17 22:00 98/45 07/31/17 22:00 80 31 66/53 100 Nasal Cannula 2.0 07/31/17 21:45 84 25 54/24 100 Nasal Cannula 2.0 07/31/17 21:15 73 22 94/20 100 Nasal Cannula 2.0 07/31/17 21:00 74/39 07/31/17 21:00 82/60 07/31/17 21:00 72 26 74/39 100 Nasal Cannula 2.0 07/31/17 20:45 69 21 87/45 100 Nasal Cannula 2.0 07/31/17 20:15 67 24 82/64 100 Nasal Cannula 2.0 07/31/17 20:00 64 07/31/17 20:00 98 Nasal Cannula 2.0 28 07/31/17 20:00 96.0 64 25 82/24 100 Nasal Cannula 2.0 07/31/17 20:00 Nasal Cannula 2.0 28 07/31/17 19:45 65 26 91/35 100 Nasal Cannula 2.0 07/31/17 19:15 63 22 100/56 100 Nasal Cannula 2.0 07/31/17 19:00 96/41 07/31/17 18:30 53/32 07/31/17 18:20 53/32 07/31/17 18:00 90.3 58 23 85/72 100 Room Air 07/31/17 16:38 64 23 78/50 100 Room Air 07/31/17 16:32 63 20 96/78 100 Room Air 07/31/17 15:45 64 23 96/78 100 Room Air Intake and Output 07/31/17 08/01/17 19:00 07:00 Intake Total 875 ml 1293.00 ml Output Total 0 ml 0 ml Balance 875 ml 1293.00 ml Intake Oral 0 ml 0 ml IV Total 750 ml 1293.00 ml Blood Product 125 ml Output Urine Total 0 ml 0 ml Other 0 ml Laboratory Tests 07/31/17 18:00: Arterial Blood pH 7.100*L, Arterial Blood Partial Pressure CO2 17.4*L, Arterial Blood Partial Pressure O2 292.8H, Arterial Blood HCO3 5.3L, Arterial Blood Oxygen Saturation 98.9H, Arterial Blood Base Excess -22.3, Heriberto Test Positive 07/31/17 23:10: White Blood Count 28.1*H, Red Blood Count 2.13L, Hemoglobin 6.6#*L, Hematocrit 19.9#L, Mean Corpuscular Volume 93#, Mean Corpuscular Hemoglobin 31.2H, Mean Corpuscular Hemoglobin Concent 33.4, Red Cell Distribution Width 20.7H, Platelet Count 197, Mean Platelet Volume 5.8L, Neutrophils (%) (Auto) , Lymphocytes (%) (Auto) , Monocytes (%) (Auto) , Eosinophils (%) (Auto) , Basophils (%) (Auto) , Differential Total Cells Counted 100, Neutrophils % ( Manual) 84H, Lymphocytes % (Manual) 3L, Monocytes % (Manual) 0L, Eosinophils % ( Manual) 0, Basophils % (Manual) 0, Band Neutrophils 13H, Platelet Estimate Adequate, Platelet Morphology Normal, Poikilocytosis 3+, Anisocytosis 3+, Tear Drop Cells 1+, Ovalocytes 2+, Lactic Acid Level 17.00H, Iron Level 153, Total Iron Binding Capacity 111L, Percent Iron Saturation 138H, Unsaturated Iron Binding -42L, Ferritin 6515H 08/01/17 03:00: Lactic Acid Level 11.60H 08/01/17 04:00: Lactic Acid Level 11.30H, Sodium Level 145, Potassium Level 4.5, Chloride Level 102, Carbon Dioxide Level 13L, Anion Gap 30H, Blood Urea Nitrogen 113H, Creatinine 8.7H, Estimat Glomerular Filtration Rate , Glucose Level 108#H, Calcium Level 8.0L, Total Bilirubin 0.4, Aspartate Amino Transf (AST/SGOT) 1507H , Alanine Aminotransferase (ALT/SGPT) 907H, Alkaline Phosphatase 98, Troponin I 2.265H, Total Protein 4.8L, Albumin 2.4L, Globulin 2.4, Albumin/Globulin Ratio 1.0 08/01/17 07:30: White Blood Count 12.7#H, Red Blood Count 3.48L, Hemoglobin 10.4#L, Hematocrit 31.0#L, Mean Corpuscular Volume 89, Mean Corpuscular Hemoglobin 29.9, Mean Corpuscular Hemoglobin Concent 33.6, Red Cell Distribution Width 16.6H, Platelet Count 138L, Mean Platelet Volume 5.6L, Neutrophils (%) (Auto) , Lymphocytes (%) (Auto) , Monocytes (%) (Auto) , Eosinophils (%) (Auto) , Basophils (%) (Auto) , Differential Total Cells Counted 100, Neutrophils % ( Manual) 89H, Lymphocytes % (Manual) 5L, Monocytes % (Manual) 3, Eosinophils % ( Manual) 0, Basophils % (Manual) 0, Band Neutrophils 3, Nucleated Red Blood Cells 5, Platelet Estimate Adequate, Platelet Morphology Normal, Hypochromasia 1 +, Anisocytosis 1+, Lactic Acid Level 6.50H 08/01/17 13:00: Lactic Acid Level 3.60H 08/01/17 15:00: Lactic Acid Level [Pending] Height (Feet): 5 Height (Inches): 10.00 Weight (Pounds): 181 General Appearance: no apparent distress, alert EENT: PERRL/EOMI Neck: non-tender, supple Cardiovascular: normal rate, regular rhythm, no JVD Abdomen: normal bowel sounds, soft, other - L sided abdominal pain Extremities: normal range of motion, non-tender Neurologic: disoriented AVERY FAIRCHILD Aug 01, 2017 15:46
--- NOTE | 2017-08-01 16:11 | Cardiology Report ---
APPROVED REPORT EXAM: Two-dimensional and M-mode echocardiogram with Doppler and color Doppler. INDICATION Acute myocard infarction M-Mode DIMENSIONS IVSd1.1 (0.7-1.1cm)Left Atrium (MM)4.4 (1.6-4.0cm) LVDd4.5 (3.5-5.6cm)Aortic Root2.6 (2.0-3.7cm) PWd1.3 (0.7-1.1cm)Aortic Cusp Exc.1.6 (1.5-2.0cm) LVDs3.1 (2.5-4.0cm) PWs1.4 cm Normal left ventricular chamber size, systolic function and wall motion. Left ventricular ejection fraction estimated to be 60-65%. No evidence of left ventricular hypertrophy. Small posterior pericardial effusion. All other cardiac chamber sizes are within normal limits. Focal aortic valve sclerosis with adequate cusp excursion. Thickened mitral valve leaflets with normal excursion. Mild mitral annulus and aortic root calcification. Pulmonic valve is well visualized. Normal tricuspid valve structure. IVC is normal in size and collapsible with respiration. A color flow and spectral Doppler study was performed and revealed: No aortic regurgitation.Aortic vavle peak gradient 24 mmhg , adn mean gradient 12 mmhg No mitral regurgitation. Mitral diastolic velocities suggest reduced left ventricular relaxation c/w diastolic dysfunction grade 1. Trace tricuspid regurgitation.
[2017-08-01] MEDS ORDERED: NS 500ML ONE (18:35)
[2017-08-01] MEDS ORDERED: Sodium Bicarbonate 50ml Carp ONE (18:35)
[2017-08-01] MEDS ORDERED: 1/2 NS 1000ml IV ONE (18:35)
--- NOTE | 2017-08-01 19:54 | General Progress Note ---
Assessment/Plan Assessment/Plan Assessment - sepsis - Shock - Anemia, s/p transfusion x 4 - renal failure - Lactic acidosis with negative CT for obvious source - poor px Recommendations - supportive care - patient subsequent to my visit Patient seen earlier today Signature timestamp does not reflect encounter time. Subjective Allergies: Coded Allergies: No Known Allergies (Unverified , 07/31/17) Subjective patient seen earlier today subsequently discussed with RN and Renal CT reviewed - no acute findings patient non-communicative during visit Objective Last 24 Hour Vital Signs Date Time Temp Pulse Resp B/P (MAP) Pulse Ox O2 Delivery O2 Flow Rate FiO2 08/01/17 18:00 167/107 08/01/17 18:00 89 6 121/38 98 Non-Rebreather 15.0 08/01/17 17:48 71/54 08/01/17 17:00 125 35 99/57 98 Nasal Cannula 2.0 08/01/17 16:00 99.0 120 35 99/58 98 Nasal Cannula 2.0 08/01/17 16:00 93/62 08/01/17 16:00 120 08/01/17 15:00 99 32 106/60 98 Nasal Cannula 2.0 08/01/17 15:00 106/51 08/01/17 14:00 117/62 08/01/17 14:00 96 30 103/42 98 Nasal Cannula 2.0 08/01/17 13:00 163/72 08/01/17 13:00 120 29 118/47 94 Nasal Cannula 2.0 08/01/17 12:00 106 08/01/17 12:00 125/77 08/01/17 12:00 98.0 106 26 130/68 96 Nasal Cannula 2.0 08/01/17 11:00 97 30 129/57 95 Nasal Cannula 2.0 08/01/17 11:00 129/57 08/01/17 10:00 103 22 121/64 100 Nasal Cannula 2.0 08/01/17 10:00 120/54 08/01/17 09:17 129/52 08/01/17 09:00 105 24 129/52 100 Nasal Cannula 2.0 08/01/17 08:00 118 08/01/17 08:00 104/55 08/01/17 08:00 104/55 08/01/17 07:00 124/54 08/01/17 07:00 97.2 116 23 84/43 100 Nasal Cannula 2.0 08/01/17 06:00 100 26 106/54 100 Nasal Cannula 2.0 08/01/17 05:45 105 24 114/54 100 Nasal Cannula 2.0 08/01/17 05:30 111 24 97/40 100 Nasal Cannula 2.0 08/01/17 05:15 117 24 105/55 100 Nasal Cannula 2.0 08/01/17 05:00 97.2 117 24 101/54 100 Nasal Cannula 2.0 08/01/17 04:45 116 25 111/52 100 Nasal Cannula 2.0 08/01/17 04:30 117 25 120/51 100 Nasal Cannula 2.0 08/01/17 04:15 97.8 116 26 77/53 100 Nasal Cannula 2.0 08/01/17 04:00 117 29 115/94 100 Nasal Cannula 2.0 08/01/17 04:00 117 08/01/17 03:45 114 26 78/45 100 Nasal Cannula 2.0 08/01/17 03:30 116 27 121/97 100 Nasal Cannula 2.0 08/01/17 03:15 114 29 107/83 100 Nasal Cannula 2.0 08/01/17 03:00 115 26 104/86 100 Nasal Cannula 2.0 08/01/17 02:45 112 28 61/51 100 Nasal Cannula 2.0 08/01/17 02:30 102 27 81/59 100 Nasal Cannula 2.0 08/01/17 02:00 100 25 82/51 100 Nasal Cannula 2.0 08/01/17 01:57 106/74 08/01/17 01:45 106 26 85/40 100 Nasal Cannula 2.0 08/01/17 01:30 105 24 92/42 100 Nasal Cannula 2.0 08/01/17 01:15 103 21 88/38 100 Nasal Cannula 2.0 08/01/17 01:00 103 21 90/74 100 Nasal Cannula 2.0 08/01/17 00:45 100 21 107/94 100 Nasal Cannula 2.0 08/01/17 00:30 93 21 100/35 100 Nasal Cannula 2.0 08/01/17 00:00 75 08/01/17 00:00 97.8 78 22 78/12 100 Nasal Cannula 2.0 07/31/17 23:30 71 21 73/14 100 Nasal Cannula 2.0 07/31/17 23:15 72 32 85/24 100 Nasal Cannula 2.0 07/31/17 23:00 85/51 07/31/17 23:00 70/22 07/31/17 23:00 73 30 61/48 100 Nasal Cannula 2.0 07/31/17 22:45 75 32 54/15 100 Nasal Cannula 2.0 07/31/17 22:30 81 28 63/30 100 Nasal Cannula 2.0 07/31/17 22:15 80 31 69/39 100 Nasal Cannula 2.0 07/31/17 22:00 66/53 07/31/17 22:00 98/45 07/31/17 22:00 80 31 66/53 100 Nasal Cannula 2.0 07/31/17 21:45 84 25 54/24 100 Nasal Cannula 2.0 07/31/17 21:15 73 22 94/20 100 Nasal Cannula 2.0 07/31/17 21:00 74/39 07/31/17 21:00 82/60 07/31/17 21:00 72 26 74/39 100 Nasal Cannula 2.0 07/31/17 20:45 69 21 87/45 100 Nasal Cannula 2.0 07/31/17 20:15 67 24 82/64 100 Nasal Cannula 2.0 07/31/17 20:00 64 07/31/17 20:00 98 Nasal Cannula 2.0 28 07/31/17 20:00 96.0 64 25 82/24 100 Nasal Cannula 2.0 07/31/17 20:00 Nasal Cannula 2.0 28 Intake and Output 07/31/17 08/01/17 19:00 07:00 Intake Total 875 ml 1293.00 ml Output Total 0 ml 0 ml Balance 875 ml 1293.00 ml Intake Oral 0 ml 0 ml IV Total 750 ml 1293.00 ml Blood Product 125 ml Output Urine Total 0 ml 0 ml Other 0 ml Laboratory Tests 07/31/17 23:10: White Blood Count 28.1*H, Red Blood Count 2.13L, Hemoglobin 6.6#*L, Hematocrit 19.9#L, Mean Corpuscular Volume 93#, Mean Corpuscular Hemoglobin 31.2H, Mean Corpuscular Hemoglobin Concent 33.4, Red Cell Distribution Width 20.7H, Platelet Count 197, Mean Platelet Volume 5.8L, Neutrophils (%) (Auto) , Lymphocytes (%) (Auto) , Monocytes (%) (Auto) , Eosinophils (%) (Auto) , Basophils (%) (Auto) , Differential Total Cells Counted 100, Neutrophils % ( Manual) 84H, Lymphocytes % (Manual) 3L, Monocytes % (Manual) 0L, Eosinophils % ( Manual) 0, Basophils % (Manual) 0, Band Neutrophils 13H, Platelet Estimate Adequate, Platelet Morphology Normal, Poikilocytosis 3+, Anisocytosis 3+, Tear Drop Cells 1+, Ovalocytes 2+, Lactic Acid Level 17.00H, Iron Level 153, Total Iron Binding Capacity 111L, Percent Iron Saturation 138H, Unsaturated Iron Binding -42L, Ferritin 6515H 08/01/17 03:00: Lactic Acid Level 11.60H 08/01/17 04:00: Lactic Acid Level 11.30H, Sodium Level 145, Potassium Level 4.5, Chloride Level 102, Carbon Dioxide Level 13L, Anion Gap 30H, Blood Urea Nitrogen 113H, Creatinine 8.7H, Estimat Glomerular Filtration Rate , Glucose Level 108#H, Calcium Level 8.0L, Total Bilirubin 0.4, Aspartate Amino Transf (AST/SGOT) 1507H , Alanine Aminotransferase (ALT/SGPT) 907H, Alkaline Phosphatase 98, Troponin I 2.265H, Total Protein 4.8L, Albumin 2.4L, Globulin 2.4, Albumin/Globulin Ratio 1.0 08/01/17 07:30: White Blood Count 12.7#H, Red Blood Count 3.48L, Hemoglobin 10.4#L, Hematocrit 31.0#L, Mean Corpuscular Volume 89, Mean Corpuscular Hemoglobin 29.9, Mean Corpuscular Hemoglobin Concent 33.6, Red Cell Distribution Width 16.6H, Platelet Count 138L, Mean Platelet Volume 5.6L, Neutrophils (%) (Auto) , Lymphocytes (%) (Auto) , Monocytes (%) (Auto) , Eosinophils (%) (Auto) , Basophils (%) (Auto) , Differential Total Cells Counted 100, Neutrophils % ( Manual) 89H, Lymphocytes % (Manual) 5L, Monocytes % (Manual) 3, Eosinophils % ( Manual) 0, Basophils % (Manual) 0, Band Neutrophils 3, Platelet Estimate Adequate, Platelet Morphology Normal, Anisocytosis 1+, Lactic Acid Level 6.50H, Nucleated Red Blood Cells 5, Hypochromasia 1+ 08/01/17 13:00: Lactic Acid Level 3.60H 08/01/17 15:00: Lactic Acid Level 6.00H 08/01/17 17:43: Arterial Blood pH 6.897*L, Arterial Blood Partial Pressure CO2 92.1*H, Arterial Blood Partial Pressure O2 142.5H, Arterial Blood HCO3 17.5L, Arterial Blood Oxygen Saturation 96.1, Arterial Blood Base Excess -15.5, Heriberto Test Height (Feet): 5 Height (Inches): 10.00 Weight (Pounds): 181 Objective Elderly AA man NCAT supple Coarse BS RR abd mildly distended mild diffuse TTP (some grimace during exam) no edema obtunded JEAN COVARRUBIAS Aug 01, 2017 19:54
[2017-08-01] MEDS ORDERED: Meropenem 500mg in NS 55ml IVPB SCH (21:00)
--- NOTE | 2017-08-01 23:00 | Consultation ---
DATE OF CONSULTATION: 07/31/2017 CARDIOLOGY CONSULTATION CONSULTING PHYSICIAN: Dwaine Anderson M.D. REQUESTING PHYSICIAN: Mamadou Paul M.D. REASON FOR CONSULTATION: Shock. HISTORY OF PRESENT ILLNESS: This is an 87-year-old male with end-stage renal disease, on hemodialysis. He was transferred from a long-term facility after being found confused and poorly responsive. In the emergency room, he was hypotensive with hemoglobin of only 4 g. The patient was admitted to the intensive care unit and remained hypotensive. I have been asked to assist with further hemodynamic care. PAST MEDICAL HISTORY: Includes hypertension, end-stage renal disease, type 2 diabetes mellitus, ischemic cardiomyopathy, and cerebrovascular disease with dementia. ALLERGIES: None. MEDICATIONS: Prior to admission were reviewed and reconciled. SOCIAL HISTORY: No record of smoking, alcohol, or substance abuse. FAMILY HISTORY: Noncontributory. REVIEW OF SYSTEMS: Presently not obtainable from the patient. However, pertinent data from records review is outlined above. PHYSICAL EXAMINATION: VITAL SIGNS: Afebrile, blood pressure 70/50, pulse 60, and respirations 23. The patient is poorly responsive. HEENT: Pale conjunctivae. Pupils are reactive but sluggish. Oropharynx clear. No thrush. NECK: Supple with no jugular venous distention. LUNGS: Revealed clear breath sounds. CARDIAC: Regular rhythm and rate. Normal S1 and S2 with no rub. ABDOMEN: Distended, but soft. EXTREMITIES: Without edema. Right chest wall has a subclavian dialysis catheter in place. Right groin has a triple lumen catheter in place. The patient is noncommunicative presently. LABORATORY AND DIAGNOSTIC DATA: Sodium 141, potassium 4.2, BUN 102, and creatinine 8.8. White count 20, hemoglobin 4.5, and platelet count 228,000. Lactic acid is 15.9. Chest x-ray with no acute process. ABG, pH 7.1, pCO2 17, pO2 292. IMPRESSION: 1. Sepsis. 2. Shock. 3. Severe anemia. 4. Metabolic acidosis. 5. Lactic acidosis. 6. Acute myocardial ischemia. 7. Critical and guarded. 8. End-stage renal disease. PLAN: 1. Pressor support. 2. Broad-spectrum antibiotics. 3. Transfuse to hemoglobin above 7 g. 4. We will need to arrange hemodialysis although hemodynamics may not permit this at this time. 5. Bicarbonate infusion. 6. May need intubation and mechanical ventilation although family members are considering previous advance directives for DNI. Dwaine Anderson M.D. DR: YUMIKO JOB#: [id number] CC:
--- NOTE | 2017-08-02 01:00 | Procedure Note ---
DATE OF PROCEDURE: 08/01/2017 PROCEDURE: Upper gastrointestinal endoscopy with biopsy and gastrostomy tube placement. SURGEON: Amairani Tobias M.D. ANESTHESIA: Please see the separate anesthesiologist notes for details. PRE-ENDOSCOPIC DIAGNOSES: Malnutrition and dysphagia. POST-ENDOSCOPIC DIAGNOSES: 1. Diffuse non-erosive antrum gastritis, status post biopsy. 2. Status post gastrostomy tube placement. DESCRIPTION OF PROCEDURE: The patient was sedated in the supine position. A diagnostic upper endoscope was introduced through the oropharynx and advanced to the duodenum. The endoscope was then gradually withdrawn and the mucosa was examined carefully. Examination of upper gastric mucosa revealed diffuse antrum gastritis, which was non-erosive and was biopsied. Thereafter, location for placement of gastrostomy tube was identified by palpation and transillumination techniques. The outside skin was sterilely prepared, anesthetized, and incised, and a trocar needle was used to place a gastrostomy catheter using the standard pull technique. Position was verified endoscopically. The endoscope was removed and the patient was sent to recovery in good condition. COMPLICATIONS: None. RECOMMENDATIONS: 1. Observe overnight. 2. Resume tube feedings tomorrow. Amairani Tobias M.D. DR: SHANNON JOB#: [id number] CC:
--- NOTE | 2017-08-02 01:15 | Progress Note ---
DATE: 08/01/2017 CARDIOLOGY PROGRESS NOTE CRITICAL CARE TIME: 90 minutes. SUBJECTIVE: The patient is doing poorly. His lactic acid levels have not decreased and in fact have started increasing again. He remains poorly responsive. The patient's blood pressure is tenuous and he remains on high-dose Levophed of up to 20 mcg/kg/minute. I contacted the patient's and apprised her of the situation. She has visited him earlier. She stated that the patient did not want life support and had documented that previously. She did not feel comfortable putting him on life support should that be required. As such, she wanted me to put Do Not Intubate order in place, but continue other efforts at resuscitation that did not include any "machinery" and this was discussed with Dr. Paul, who concurred. Immediately following my conversation, the patient developed bradycardia followed by EMD and a Code Blue was called, which I ran. The patient was successfully resuscitated and placed on high-flow oxygen, but still appeared to have very poor prognosis (please refer to Code Blue log). The patient's was contacted again and made aware of the current situation and she made plans to come and visit immediately. OBJECTIVE: VITAL SIGNS: Blood pressure 75/50, pulse 90, respirations 22 and shallow, afebrile. Moderate edema. LUNGS: Diminished breath sounds. HEART: Regular rhythm and rate. Normal S1, S2. ABDOMEN: Soft, but distended. NEUROLOGIC: The patient is poorly responsive. LABORATORY DATA: Labs today following transfusions, hemoglobin 10.4, white count 12.7. Lactic acid up to 6 from a peak of 11. BUN is 113, creatinine 8.7, potassium 4.5. Albumin 2.4. ABG, pH 6.89, pCO2 92, and pO2 142. IMPRESSION: 1. Severe lactic acidosis. 2. Sepsis. 3. End-stage renal disease. 4. Metabolic encephalopathy. 5. Shock liver. 6. Severe protein-calorie malnutrition. 7. Acute myocardial infarction. 8. Critical and grave. PLAN: 1. Readdress advanced directives once the patient's arrives to visit the patient again. 2. Continue bicarbonate with IV fluids. 3. Oxygenation. 4. Pressors. 5. Broad-spectrum antibiotics. Dwaine Anderson M.D. DR: AR JOB#: [id number] CC:
--- NOTE | 2017-08-03 11:54 | Discharge Summary ---
Discharge Summary Hospital Course Date of Admission Jul 31, 2017 at 10:06 Date of Discharge Aug 01, 2017 at 18:36 Admitting Diagnosis ams HPI Joe Rivero is a 87 year old male who was admitted on Jul 31, 2017 at 10:06 for Altered Mental Status Hospital Course [id number] Discharge Discharge Disposition Patient Discharge Diagnoses: Lyndsey Zabala NP Aug 03, 2017 11:54
--- NOTE | 2017-08-03 23:00 | Discharge Summary 2 SIG ---
DATE OF ADMISSION: 07/31/2017 DATE OF DISCHARGE: 08/01/2017 BRIEF SUMMARY: The patient is an unfortunate 87-year-old male who has history of stroke, hypertension, end-stage renal disease, diabetes and cardiomyopathy who was transferred from [facility] facility after he was found confused and poorly responsive. On evaluation at the emergency room, he was hypotensive. Hemoglobin was 4, white count of 20,000. He had evidence of urinary tract infection. Lactic acid was 20. He was admitted to ICU and was started on IV pressors. He was given total units of four packed RBC blood transfusion. On examination, abdomen was tender to palpation and was mildly distended. Abdominal CAT scan obtained showed equivocal mild wall thickening of the distal sigmoid colon. He had a head CT that showed small chronic right frontal convexity, negative for acute intracranial bleed. He was started on IV vancomycin and Zosyn. Zosyn was eventually discontinued and was given meropenem. His initial troponin was 0.036 went up to 2.265. He continued to be hypotensive and was kept on IV pressors. Per family wishes, the patient was placed on DNR/DNI. The patient developed bradycardia. The family stated they do not want any intubation and the patient eventually . FINAL DIAGNOSES: 1. Sepsis. 2. Severe lactic acidosis. 3. End-stage renal disease. 4. Severe protein-calorie malnutrition. 5. Altered mental status/acute encephalopathy. 6. Severe acute anemia requiring blood transfusion. 7. Acute myocardial infarction, 8. Possible ischemic colitis. Mamadou Paul M.D. I have been assigned to dictate discharge summary on this account and I was not involved in the patient's management. Lyndsey Zabala N.P. DR: Marty JOB#: [id number] CC: PREMA
--- NOTE | 2017-08-09 18:44 | Cardiology Report ---
APPROVED REPORT EKG Measurement Heart [id number] [place] 256P [id number] Sinus tachycardia with 1st degree AV block Right bundle branch block Abnormal ECG
== END 2017-08-01 18:36 | disposition expired | DRG 871 ==
LOC: EDSEX 09:04 → EDBD 09:04 → EMR 10:01 → ICU 10:06 → EDBEDREQ 11:18 → EDBEDREQSVC 11:18 → EDBEDREQ 15:17 → EDBEDREQSVC 15:32 → ICU 16:33
PROC: 30233N1 Transfusion of Nonautologous Red Blood Cells into Peripheral Vein, Percutaneous Approach (ICD-10-PCS; principal; 2017-07-31)
DX: A41.9 Sepsis, unspecified organism (principal); R65.21 Severe sepsis with septic shock; K72.00 Acute and subacute hepatic failure without coma; I21.9 Acute myocardial infarction, unspecified; E43 Unspecified severe protein-calorie malnutrition; G93.41 Metabolic encephalopathy; K55.9 Vascular disorder of intestine, unspecified; N18.6 End stage renal disease; I12.0 Hypertensive chronic kidney disease with stage 5 chronic kidney disease or end stage renal disease; N39.0 Urinary tract infection, site not specified; E87.2 Acidosis; E11.22 Type 2 diabetes mellitus with diabetic chronic kidney disease; D64.9 Anemia, unspecified; Z99.2 Dependence on renal dialysis; I25.5 Ischemic cardiomyopathy; Z79.4 Long term (current) use of insulin; Z68.26 Body mass index [BMI] 26.0-26.9, adult; Z86.73 Personal history of transient ischemic attack (TIA), and cerebral infarction without residual deficits
CPT/HCPCS: 36415; 36600; 70450; 71045; 74176; 80053; 81003; 82550; 82553; 82728; 82803; 82962; 83540; 83550; 83605; 84484; 85007; 85025; 85610; 85730; 86710; 86850; 86900; 86901; 86920; 87040; 87081; 87086; 93005; 93306; 94760; J0171; J1815